=== PATIENT | male | born 1995 | race Caucasian/White ===

== ENCOUNTER 2019-04-12 13:27 | Emergency (ER) | payer BC ==
[~2019-04-12] VITALS: Ht 175.3 cm; Wt 88.5 kg
[2019-04-12 13:35] VITALS: BP 126/84
[2019-04-12] MEDS ORDERED: IBUPROFEN 800 MG TAB PO ONE (18:30)
== END 2019-04-12 18:44 | disposition home or self-care (01) ==
LOC: ER 13:27
DX: S63.502A Unspecified sprain of left wrist, initial encounter (principal); X50.1XXA Overexertion from prolonged static or awkward postures, initial encounter; Y93.89 Activity, other specified; Y99.8 Other external cause status; Y92.89 Other specified places as the place of occurrence of the external cause
CPT/HCPCS: 73130

== ENCOUNTER 2024-01-08 10:44 | Emergency (ER) | payer BC, OTHER ==
[~2024-01-08] VITALS: Ht 175.3 cm; Wt 91.7 kg
[2024-01-08 11:04] VITALS: PULSE 127; RESP 18; TEMP 98.4; O2SAT 100
[2024-01-08] MEDS: KETOROLAC TROMETH 30 MG/ML 1ML VIAL IM ONE (11:16)
[2024-01-08 11:33] VITALS: BP 139/112; PULSE 118; RESP 16; O2SAT 96
== END 2024-01-08 12:07 | disposition home or self-care (01) ==
LOC: ER 10:44
DX: S89.81XA Other specified injuries of right lower leg, initial encounter (principal); X58.XXXA Exposure to other specified factors, initial encounter; Y93.89 Activity, other specified; Y92.89 Other specified places as the place of occurrence of the external cause; Y99.8 Other external cause status
CPT/HCPCS: 96372; 99283; J1885

== ENCOUNTER 2024-01-16 10:19 | Emergency (ER) | payer OTHER, BC ==
[~2024-01-16] VITALS: Ht 175.3 cm; Wt 90.0 kg
[2024-01-16 10:34] VITALS: BP 148/100; PULSE 86
--- NOTE | 2024-01-16 10:53 | ED.PDOC ---
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 Patient presents today for right knee pain injury that he suffered on January 06. He also had an injury in May of this year and had an MRI done already in July. Patient lately was working and felt pain in his right knee and heard a crack and has been complaining of right medial knee pain and unable to fully extend his right knee. Patient is requesting work off note until January 25. Patient states he already has a knee immobilizer/brace from before. PMHx: ADHD PSHx: Right Hand Surgery, Right Knee Surgery Allergies: No Known Allergies Initial Vital Signs: BP: 148/100 HR: 86 Temp: 98.5F SpO2: 98% RR: 18 REVIEW OF SYSTEMS: CONSTITUTIONAL: Denies acute: fever, diaphoresis, chills, generalized weakness. HEAD: Denies acute: headache, photophobia Eyes: Denies acute: Double vision, vision loss, eye pain, eye discharge. EARS: Denies acute: tinnitus, hearing loss, ear discharge, ear pain, THROAT: Denies acute: sore throat, swelling, difficulty swallowing , pain with swallowing, change in voice. NECK: Denies acute: neck pain, neck swelling, stiff neck. HEART: Denies acute : chest pain, palpitations, LUNGS: Denies acute: SOB, wheezing, cough, hemoptysis ABDOMEN: Denies acute: abdominal pain, Nausea, Vomiting, diarrhea, melena , hematemesis, hematochezia SKIN: Denies acute: rash, redness, lesions, itchiness. EXTREMITIES: Denies acute: calf pain, numbness, tingling, weakness, Denies acute: Low back pain. Neuro: Denies acute: focal neurological deficit, motor or sensory focal neurological deficit, tremors, seizure like activity, confusion, dizziness, change in mental status, loss of bowel or bladder function, cauda equina like symptoms. : Denies acute: dysuria, hematuria, flank pain, increase in urinary frequency. PSYCH: Denies acute: hallucination, suicidal ideation, homicidal ideation. PHYSICAL EXAM: General: no acute distress, awake and alert. Head: normocephalic, atraumatic. Neck: supple, trachea is midline, no swelling. Throat: Normal phonation. Eyes:, no erythema, no purulent discharge, no proptosis, no icterus. Heart: regular rate, regular rhythm, no significant murmur appreciated. Lungs: no apparent respiratory distress, Able to speak in full sentences. No wheezing, no rhonchi, no crackles. No stridors Clear to auscultation bilaterally. Abdomen: non tender to palpation, non distended, soft, no guarding, no rebound, + bowel sounds. Neuro: Awake, Alert, oriented to name, self, situation, follows commands GCS=15. Speech is normal. Skin: no petechia, no purpura, no cyanosis, non-pale, not jaundice. Lower extremities: --no - Pitting edema no deformity, no focal swelling, no calf TTP. Palpation of the right medial region of the knee has focal tenderness to palpation. No apparent swelling or deformity or erythema noted. Patient is neurovascularly intact in the affected extremity. Pedal pulses palpable. Motor and sensory are present. Patient has decreased range of motion in his right knee unable to fully extended due to pain. Makes eye contact. moves all four extremities. Face: no apparent facial droop. Ambulating in the ED independently. Chief Complaint: Lower Extremity Time Seen by MD: 10:40 Primary Care Provider: UNKNOWN Reviewed Notes: Nurses Notes, Medications, Allergies Allergies: Coded Allergies: NO KNOWN ALLERGIES (Unverified , 04/12/19) Information Source: Patient Mode of Arrival: Ambulatory Past Medical History PAST MEDICAL HISTORY: Denies Surgical History: Denies all surgeries Family History Family History: Reviewed,noncontributory to illness Social History Smoker: Non-Smoker Alcohol: Denies ETOH Use Drugs: Denies Drug Use Lives In: Home Was a procedure done? Was a procedure done?: No Back Pain Differential Dx Differential Diagnosis: Fracture, Musculoskeletal Pain Other Differential Diagnosis Ligamental injury, tendon injury, arthritis, septic joint, X-Ray, Labs, Meds, VS Vital Signs Date Time Temp Pulse Resp B/P (MAP) Pulse Ox O2 Delivery O2 Flow Rate FiO2 01/16/24 11:05 18 98 Room Air* 0 21 01/16/24 10:34 98.5 86 18 148/100 (116) 98 Time of 1ST Reevaluation: 11:10 Reevaluation 1ST: Unchanged Patient Education/Counseling: Diagnosis, Treatment Family Education/Counseling: No Family Present Comments Patient presented with the above HPI.---right knee pain---workup was initiated. patient was found with the above mentioned diagnosis. Patient ED course and VS have been stabilized. Patient has been reassessed in th e ED and remained in a stable condition. Pertinent incidental findings were discussed with the patient and/or family. Patient/family voices understanding and is agreeable with plan. Patient has been observed in the ED adequate length of time to insure improvement/stability. patient was discharged home to follow up with worker's compensation orthopedic surgery. Patient was given work restrictions and a work off note as well All the reports of any imaging studies that were ordered by myself were reviewed by myself. Departure 1 Departure Time of Disposition: 11:53 Impression: Primary Impression: Right knee injury Additional Impression: Right knee pain Disposition: HOME / SELF CARE / HOMELESS Condition: Stable Additional Instructions: Additional discharge instructions: You MUST follow-up with your primary care/family doctor in 1 to 2 days. If you are unable to see your primary care/family doctor, please return to our emergency room for re-assessment and re-evaluation in 1 to 2 days. Return to the emergency room here in our facility or to the nearest ER [facility] if your symptoms change or worsen. CONSULTATIONS: you MUST Follow-up for consultation as soon as possible with: -worker's compensation orthopedic surgery in 1-2 days. Please call for appointment. You MUST call the consultants office yourself to make an appointment. You may need to arrange that through your insurance and/or your primary/family doctor. If you are unable to see the reimbursement consultant in 1 to 2 days, you must return to our emergency room (or any other ER of your choice) for re-assessment and re-eval uation. Adequate fluid hydration. Use [id number] Tylenol ibuprofen as needed for pain control. Limited duty with your work given your right knee pain. Below is a copy of your radiological report for follow up: [address] [address] Ph: [phone] DIAGNOSTIC IMAGING Diagnostic Imaging Report : [id number] Signed PATIENT: NICOLE KAPOOR ACCT: [id number] UNIT: [id number] : 1995 LOC: ER ROOM / BED: / AGE / SEX: 28 / M ADM STATUS: REG ER SERVICE 1045 ORDERING PHYSICIAN: JACKIE BAUTISTA DO PROCEDURE(s): RKNE4 - R KNEE 4V XRAY REASON: knee pain/injury ORDER NUMBER(s): [id number], ACCESSION NUMBER(s): [id number] CLINICAL INDICATION: knee pain/injury TECHNIQUE: 4 radiographic views of the RIGHT KNEE were obtained. Comparison: None FINDINGS/IMPRESSION: There is no evidence of acute fracture or dislocation. Status post ACL repair. The visualized joint space is well maintained. The alignment is anatomical. There is no radiopaque foreign body. ATED BY: TANIKA AVILA MD DICTATED DATE/TIME: 01/16/24 1148 SIGNED BY: TANIKA AVILA MD SIGNED DATE/TIME: 01/16/24 1148 CC: Discharged With: Self Critical Care Note Critical Care Time?: No I personally scribed for JACKIE BAUTISTA DO ([email or web address]) on 01/16/24 at 10:53. Electronically submitted by Claude Ayoub ([email or web address]). I personally scribed for JACKIE BAUTISTA DO ([email or web address]) on 01/16/24 at 11:29. Electronically submitted by Claude Ayoub ([email or web address]). JACKIE BAUTISTA DO Jan 16, 2024 10:53
[2024-01-16 11:05] VITALS: RESP 18; O2SAT 98
--- NOTE | 2024-01-16 11:50 | DVH ---
CLINICAL INDICATION: knee pain/injury TECHNIQUE: 4 radiographic views of the RIGHT KNEE were obtained. Comparison: None FINDINGS/IMPRESSION: There is no evidence of acute fracture or dislocation. Status post ACL repair. The visualized joint space is well maintained. The alignment is anatomical. There is no radiopaque foreign body.
== END 2024-01-16 12:05 | disposition home or self-care (01) ==
LOC: ER 10:19
DX: S89.91XA Unspecified injury of right lower leg, initial encounter (principal); Z98.890 Other specified postprocedural states; X58.XXXA Exposure to other specified factors, initial encounter; Y93.89 Activity, other specified; Y92.69 Other specified industrial and construction area as the place of occurrence of the external cause; Y99.8 Other external cause status
CPT/HCPCS: 73564

== ENCOUNTER 2024-02-03 08:09 | Emergency (ER) | payer BC, OTHER ==
--- NOTE | 2024-02-03 09:27 | ED.PDOC ---
History of Present Illness HPI Comments 28M presents to the ER w/ prior Hx of right knee surgery which may be associated to the c/c of LE. Patient reports that he tore the meniscus to the right knee when he in the bathroom. Patient reports pain to be in the mid side and has been unable to walk from the incident. PMHx of ADHD. SHx of right hand surgery. Denies chills, fever, N/V/D, SOB, CP or other associated symptoms, modifiers, or recent injuries at this time. Chief Complaint: Lower Extremity Time Seen by MD: 08:35 Primary Care Provider: UNKNOWN Reviewed Notes: Nurses Notes, Medications, Allergies Allergies: Coded Allergies: NO KNOWN ALLERGIES (Unverified , 04/12/19) Information Source: Patient Mode of Arrival: Ambulatory Severity: Moderate Timing: Hours Duration: Since onset, Hours Prehospital treatment: None Past Medical History Past Medical History (Other): ADHD Surgical History: Denies all surgeries Surgical History (Other): Right hand surgery, right knee surgery Family History Family History: Reviewed,noncontributory to illness, Unknown Social History Smoker: Non-Smoker Alcohol: Denies ETOH Use Drugs: Denies Drug Use Lives In: Home Constitutional: denies: chills, diaphoresis, fatigue, fever, malaise, sweats, weakness, others EENTM: denies: blurred vision, double vision, ear bleeding, ear discharge, ear drainage, ear pain, ear ringing, eye pain, eye redness, hearing loss, mouth pain, mouth swelling, nasal discharge, nose bleeding, nose congestion, nose pain, photophobia, tearing, throat pain, throat swelling, voice changes, others Respiratory: denies: cough, hemoptysis, orthopnea, SOB at rest, shortness of breath, SOB with excertion, stridor, wheezing, others Cardiovascular: denies: chest pain, dizzy spells, diaphoresis, Dyspnea on exertion, edema, irregular heart beat, left arm pain, lightheadedness, palpit ations, PND, syncope, others Gastrointestinal: denies: abdomen distended, abdominal pain, blood streaked b owels, constipated, diarrhea, dysphagia, difficulty swallowing, hematemesis, melena, nausea, poor appetite, poor fluid intake, rectal bleeding, rectal pain, vomiting, others Genitourinary: denies: burning, dysuria, flank pain, frequency, hematuria, incontinence, penile discharge, penile sore, pain, testicle pain, testicle swelling, urgency, others Neurological: denies: dizziness, fainting, headache, left sided numbness, left sided weakness, numbness, paresthesia, pre-existing deficit, right sided numbness, right sided weakness, seizure, speech problems, tingling, tremors, weakness, others Musculoskeletal: denies: back pain, gout, joint pain, joint swelling, muscle pain, muscle stiffness, neck pain, others Integumetry: denies: bruises, change in color, change in hair/nails, dryness, laceration, lesions, lumps, rash, wounds, others Allergic/Immunocompromised: denies: Difficulty Healing, Frequent Infections, Hives, Itching, others Hematologic/Lymphatic: denies: anemia, blood clots, easy bleeding, easy bruisi ng, swollen glands, others Endocrine: denies: excessive hunger, excessive sweating, excessive thirst, exce ssive urination, flushing, intolerance to cold, intolerance to heat, unexplained weight gain, unexplained weight loss, others Psychiatric: denies: anxiety, bipolar disorder, depression, hopeless, panic disorder, schizophrenia, sleepless, suicidal, others All Other Systems: Reviewed and Negative Physical Exam Exam Comments Right knee no visible contusion General Appearance: No Apparent Distress, Normal HEENT: Normal ENT Inspection, Pharynx Normal, TMs Normal Neck: Full Range of Motion, Non-Tender, Normal, Normal Inspection Respiratory: Chest Non-Tender, Lungs Clear, No Accessory Muscle Use, No R espiratory Distress, Normal Breath Sounds Cardiovascular: No Edema, No JVD, No Murmur, No Gallop, Normal Peripheral Pulses, Regular Rate/Rhythm Breast Exam: Deferred Gastrointestinal: No Organomegaly, Non Tender, No Pulsatile Mass, Normal Bowel Sounds, Soft Genitalia: Deferred Pelvic: Deferred Rectal: Deferred Extremities: No calf tenderness, Normal capillary refill, Normal inspection, Normal range of motion, Non-tender, No pedal edema Musculoskeletal : Apperance: Normal Neurologic: Alert, hollow tile partition erector II-XII nml as Tested, No Motor Deficits, Normal Affect, Normal Mood, No Sensory Deficits Cerebellar Function: Normal Reflexes: Normal Skin: Dry, Normal Color, Warm Lymphatic: No Adenopathy Was a procedure done? Was a procedure done?: Yes Sedation Sedation?: No Informed consent obtained: Yes Other Procedure Procedure right knee immobilizer placed properly. neurovascularly intact Informed consent obtained: Yes Risks, benefits, and alternati: Yes Differential Dx Considerations may include: knee fracture, knee ligamentous injury, knee meniscus injury. contusion X-Ray, Labs, Meds, VS Vital Signs Date Time Temp Pulse Resp B/P (MAP) Pulse Ox O2 Delivery O2 Flow Rate FiO2 02/03/24 08:36 101.6 110 25 98 02/03/24 08:35 Room Air* 0 21 Time of 1ST Reevaluation: 09:05 Reevaluation 1ST: Unchanged Time of 2ND Reevaluation: 09:33 Reevaluation 2ND: Improved Patient Education/Counseling: Diagnosis, Treatment, Prognosis, Need For Follow Up Family Education/Counseling: No Family Present Additional Information External Notes-01/16/24 Ordered Test-XY Reviewed Results-pt declined the knee xray Independent Hx-none Interpreted Results-pt declined the xray Discuss Tx/Results-with medical personnel pt reports he has a prior meniscus injury and will follow up with his doctor. he declined the xray and just wants pain medication and splinting/crutches Departure 1 Departure Time of Disposition: 09:35 Impression: Primary Impression: Right knee pain Qualified Codes: M25.561 - Pain in right knee; G89.29 - Other chronic pain Disposition: 01 HOME / SELF CARE / HOMELESS Condition: Good e-Prescriptions Tramadol HCl (Tramadol HCl) 50 Mg Tab 50 MG PO Q12HP PRN for 3 Days, #6 TAB Prov: PATRICK FIELDS MD 02/03/24 Hydrocodone-Acetaminophen (Hydrocodone Bitartrate/AC 5-325 mg) 1 Tab Tab 1 TAB PO Q12HP PRN for 2 Days, #4 TAB Prov: PATRICK FIELDS MD 02/03/24 Discharged With: Self Critical Care Note Critical Care Time?: No Stability Stability form required: No I personally scribed for PATRICK FIELDS MD ([email or web address]) on 02/03/24 at 09:27. Electronically submitted by Ha Briceño ([email or web address]). PATRICK FIELDS MD Feb 03, 2024 09:27
[2024-02-03] MEDS ORDERED: HYDR-4902 PO (09:35)
[2024-02-03] MEDS ORDERED: TRAM-626 PO (09:41)
[2024-02-03] MEDS: HYDROcodone-ACET 5/325MG TAB PO ONE (09:47)
[2024-02-03 09:50] VITALS: BP 148/92; PULSE 92; RESP 16; TEMP 98.5; O2SAT 98
[2024-02-03] MEDS: KETOROLAC TROMETH 30 MG/ML 1ML VIAL IM ONE (10:01)
== END 2024-02-03 10:04 | disposition home or self-care (01) ==
LOC: ER 08:09
DX: M25.561 Pain in right knee (principal); Z98.890 Other specified postprocedural states
CPT/HCPCS: 29505; 96372; 99283; J1885